=== PATIENT | female | born 1950 | race Caucasian/White ===

== ENCOUNTER 2017-02-13 14:21 | Emergency (ER) | payer OTHER, MEDICARE ==
[~2017-02-13] VITALS: Ht 170.2 cm; Wt 67.6 kg
[~2017-02-13 14:21] MED LIST: AMLO5TAB2 PO; AMLO5TAB4 PO; MECL25TA3 PO
[2017-02-13] MEDS ORDERED: NS IV 1000 ML 1,000 ML ONE (15:13)
[2017-02-13] MEDS ORDERED: ACETAMINOPHEN 500 MG TAB (TYLENOL) ONE (15:13)
[2017-02-13] MEDS ORDERED: NS IV 1000 ML 1,000 ML IV ONE (15:14)
[2017-02-13] MEDS ORDERED: ACETAMINOPHEN 500 MG TAB (TYLENOL) PO PRN (15:15)
[2017-02-13 15:20] LABS: BASOPHILS % (AUTO) 0 % (0-10); EOSINOPHILS % (AUTO) 0 % (0-10); LYMPHOCYTES # (AUTO) 0.8 X 10^3 (1.0-4.0); LYMPHOCYTES % (AUTO) 18 % (12-44); MEAN CORPUSCULAR HEMOGLOBIN 30 PG (25-34); MEAN CORPUSCULAR HGB CONC 34 G/DL (32-36); MEAN CORPUSCULAR VOLUME 88 FL (80-99); MEAN PLATELET VOLUME 9.4 FL (7.4-10.4); MONOCYTES # (AUTO) 0.4 X 10^3 (0.0-1.0); MONOCYTES % (AUTO) 10 % (0-12); NEUTROPHILS # (AUTO) 3.2 X 10^3 (1.8-7.8); NEUTROPHILS % (AUTO) 73 % (42-75); PLATELET COUNT 166 10^3/uL (130-400); RED CELL DISTRIBUTION WIDTH 13.2 % (10.0-14.5); WHITE BLOOD COUNT 4.4 10^3/uL (4.3-11.0)
[2017-02-13 15:21] LABS: BILIRUBIN,URINE 1+ (NEGATIVE); KETONES,URINE 1+ (NEGATIVE); LEUKOCYTE ESTERASE ,URINE 2+ (NEGATIVE); NITRITE,URINE NEGATIVE (NEGATIVE); PH,URINE 6 (5-9); PROTEIN,URINE 3+ (NEGATIVE); UROBILINOGEN,URINE 1 MG/DL (NORMAL)
[2017-02-13 15:26] LABS: PROTHROMBIN TIME PATIENT 12.7 SEC (12.2-14.7)
[2017-02-13 15:36] LABS: ALANINE AMINOTRANSFERASE 23 U/L (0-55); ANION GAP 13 MMOL/L (5-14); ASPARTATE AMINO TRANSFERASE 28 U/L (5-34); BILIRUBIN,TOTAL 0.4 MG/DL (0.1-1.0); BLOOD UREA NITROGEN 12 MG/DL (7-18); BUN/CREATININE RATIO 15; CALCIUM 9.3 MG/DL (8.5-10.1); CARBON DIOXIDE 21 MMOL/L (21-32); CHLORIDE 98 MMOL/L (98-107); CREATININE SERUM 0.78 MG/DL (0.60-1.30); GFR ESTIMATED > 60; GLUCOSE 115 MG/DL (70-105); POTASSIUM 3.3 MMOL/L (3.6-5.0); SODIUM 132 MMOL/L (135-145); TOTAL PROTEIN 7.1 G/DL (6.4-8.2)
[2017-02-13] MEDS ORDERED: DEXAMETHASONE PF 10 MG/ML (DECADRON) VIAL ONE (16:20)
--- NOTE | 2017-02-13 16:27 | ED Cough/URI ---
General Chief Complaint: Fever-Adult/Adol Stated Complaint: DEHYDRATION Nursing Triage Note: PT CO OF FEVER, HAS BEEN SICK W N/V/D SINCE WEDNESDAY, WAS SEEN BY YESTERDAY Source: patient Exam Limitations: no limitations History of Present Illness Time seen by provider: 16:00 Initial Comments Here with report of fever and cough as well as overall not feeling well and thinks she may be dehydrated. She did have nausea, vomiting and diarrhea for the last few days but that has improved. Today mostly it's cough. She was seen by her doctor yesterday and noted that influenza was negative and they believe that this was a viral etiology. She is a long-term smoker. Timing/Duration: getting worse, other Severity/Quality: moderate, productive cough Prior Episodes/Possible Cause: occasional episodes Modifying Factors: Worse With Coughing Associated Symptoms: cough, fever/chills, nasal congestion Allergies and Home Medications Allergies Coded Allergies: No Known Drug Allergies (Unverified , 09/27/11) Home Medications Amlodipine Besylate 5 Mg Tablet, 5 MG PO DAILY, (Reported) Constitutional: see HPI, chills, fever EENTM: nose congestion Respiratory: cough, short of breath, wheezing Cardiovascular: No chest pain Gastrointestinal: see HPI, No abdominal pain, diarrhea Genitourinary: No dysuria Musculoskeletal: no symptoms reported Skin: no symptoms reported All Other Systems Reviewed Negative Unless Noted: Yes Past Zjzwiox-Ixaalx-Vrazkw Hx Patient Social History Alcohol Use: Denies Use Recreational Drug Use: No Smoking Status: Current Everyday Smoker Type Used: Cigarettes Recent Foreign Travel: No Contact w/Someone Who Travel: No Recent Infectious Disease Expo: No Recent Hopitalizations: No Immunizations Up To Date Date of Influenza Vaccine: Aug 22, 2016 Seasonal Allergies Seasonal Allergies: No Surgeries HX Surgeries: No Respiratory Hx Respiratory Disorders: No Cardiovascular Hx Cardiac Disorders: No Neurological Hx Neurological Disorders: No Reproductive System Hx Reproductive Disorders: No Sexually Transmitted Disease: No MASTER COOK History: Menopausal Genitourinary Hx Genitourinary Disorders: No Gastrointestinal Hx Gastrointestinal Disorders: No Musculoskeletal Hx Musculoskeletal Disorders: No Endocrine Hx Endocrine Disorders: No HEENT HX ENT Disorders: No Cancer Hx Cancer: No Psychosocial Hx Psychiatric Problems: No Blood Transfusions Hx Blood Disorders: No Reviewed Nursing Assessment Reviewed/Agree w Nursing PMH: Yes Family Medical History Significant Family History: Hypertension Physical Exam Vital Signs Vital Sign - Last 12Hours 02/13/17 15:12 Temp 101.0 Pulse 83 Resp 33 B/P (MAP) 133/69 Capillary Refill : Less Than 3 Seconds General Appearance: WD/WN, no apparent distress HEENT: PERRL/EOMI, pharynx normal Neck: full range of motion, supple Respiratory: no accessory muscle use, crackles (bilateral bases) Cardiovascular: regular rate, rhythm, no murmur Gastrointestinal: non tender, soft Extremities: non-tender, normal inspection Neurologic/Psychiatric: alert, oriented x 3 Skin: normal color, warm/dry Focused Exam Lactic Acid Level Laboratory Tests Test 02/13/17 15:20 Lactic Acid Level 0.65 MMOL/L (0.50-2.00) Progress/Results/Core Measures Results/Orders Lab Results Laboratory Tests Test 02/13/17 15:05 02/13/17 15:20 Range/Units White Blood Count 4.4 4.3-11.0 10^3/uL Red Blood Count 5.20 4.35-5.85 10^6/uL Hemoglobin 15.6 11.5-16.0 G/DL Hematocrit 46 35-52 % Mean Corpuscular Volume 88 80-99 FL Mean Corpuscular Hemoglobin 30 25-34 PG Mean Corpuscular Hemoglobin Concent 34 32-36 G/DL Red Cell Distribution Width 13.2 10.0-14.5 % Platelet Count 166 130-400 10^3/uL Mean Platelet Volume 9.4 7.4-10.4 FL Neutrophils (%) (Auto) 73 42-75 % Lymphocytes (%) (Auto) 18 12-44 % Monocytes (%) (Auto) 10 0-12 % Eosinophils (%) (Auto) 0 0-10 % Basophils (%) (Auto) 0 0-10 % Neutrophils # (Auto) 3.2 1.8-7.8 X 10^3 Lymphocytes # (Auto) 0.8 L 1.0-4.0 X 10^3 Monocytes # (Auto) 0.4 0.0-1.0 X 10^3 Eosinophils # (Auto) 0.0 0.0-0.3 10^3/uL Basophils # (Auto) 0.0 0.0-0.1 10^3/uL Prothrombin Time 12.7 12.2-14.7 SEC INR Comment 1.0 0.8-1.4 Activated Partial Thromboplast Time 32 24-35 SEC Urine Color YELLOW Urine Clarity SLIGHTLY CLOUDY Urine pH 6 5-9 Urine Specific Culver 1.020 1.016-1.022 Urine Protein 3+ H NEGATIVE Urine Glucose (UA) NEGATIVE NEGATIVE Urine Ketones 1+ H NEGATIVE Urine Nitrite NEGATIVE NEGATIVE Urine Bilirubin 1+ H NEGATIVE Urine Urobilinogen 1 NORMAL MG/DL Urine Leukocyte Esterase 2+ H NEGATIVE Urine RBC (Auto) 5+ H NEGATIVE Urine RBC 5-10 H /HPF Urine WBC 2-5 /HPF Urine Squamous Epithelial Cells 2-5 /HPF Urine Crystals NONE /LPF Urine Bacteria FEW H /HPF Urine Casts NONE /LPF Urine Mucus NEGATIVE /LPF Urine Culture Indicated NO Sodium Level 132 L 135-145 MMOL/L Potassium Level 3.3 L 3.6-5.0 MMOL/L Chloride Level 98 98-107 MMOL/L Carbon Dioxide Level 21 21-32 MMOL/L Anion Gap 13 5-14 MMOL/L Blood Urea Nitrogen 12 7-18 MG/DL Creatinine 0.78 0.60-1.30 MG/DL Estimat Glomerular Filtration Rate > 60 BUN/Creatinine Ratio 15 Glucose Level 115 H 70-105 MG/DL Calcium Level 9.3 8.5-10.1 MG/DL Total Bilirubin 0.4 0.1-1.0 MG/DL Aspartate Amino Transf (AST/SGOT) 28 5-34 U/L Alanine Aminotransferase (ALT/SGPT) 23 0-55 U/L Alkaline Phosphatase 114 40-136 U/L Total Protein 7.1 6.4-8.2 G/DL Albumin 4.0 3.2-4.5 G/DL Lactic Acid Level 0.65 0.50-2.00 MMOL/L My Orders Orders - JACQUELINE MCCANN MD Cbc With Automated Diff (02/13/17 15:14) Comprehensive Metabolic Panel (02/13/17 15:14) Lactic Acid Analyzer (02/13/17 15:14) Blood Culture (02/13/17 15:14) Sputum Culture (02/13/17 15:14) Ua Culture If Indicated (02/13/17 15:14) Protime With Inr (02/13/17 15:14) Partial Thromboplastin Time (02/13/17 15:14) Chest 1 View, Ap/Pa Only (02/13/17 15:14) O2 (02/13/17 15:14) Acetaminophen Tablet (Tylenol Tablet) (02/13/17 15:15) Saline Lock/Iv-Start (02/13/17 15:14) Vital Signs Adult Sepsis Patie Q1HR (02/13/17 15:14) Remove Rings In Anticipation O (02/13/17 15:14) Influenza A And B Antigens (02/13/17 15:14) Ns Iv 1000 Ml (Sodium Chloride 0.9%) (02/13/17 15:14) Acetaminophen Tablet (Tylenol Tablet) (02/13/17 15:13) Ns Iv 1000 Ml (Sodium Chloride 0.9%) (02/13/17 15:13) Dexamethasone Injection (Decadron Inject (02/13/17 16:30) Medications Given in ED Current Medications Medications Dose Ordered Sig/Dara Route Start Time Stop Time Status Last Admin Dose Admin Acetaminophen 1,000 mg ONCE PRN PO 02/13/17 15:15 02/13/17 15:20 DC 02/13/17 15:19 1,000 MG Sodium Chloride 1,000 ml @ 0 mls/hr Q0M ONCE IV 02/13/17 15:14 02/13/17 15:16 DC 02/13/17 15:19 1,000 MLS/HR Vital Signs/I&O Vital Sign - Last 12Hours 02/13/17 15:12 Temp 101.0 Pulse 83 Resp 33 B/P (MAP) 133/69 Blood Pressure Mean: 90 Progress Note : Progress Note Seen and evaluated. IV, labs, UA, chest x-ray, blood cultures and lactic acid ordered. Patient is febrile. Tylenol 1 g by mouth given. Normal saline 1 L bolus. Monitor patient. 1600: Labs look okay. There is a question of right basilar pneumonia. We will initiate antibiotic therapy for this. Due to patient's long smoking history, Decadron 10 mg IV ordered. Discharged home with return precautions. Patient verbalize understanding instructions and agreement with plan. She states she feels better after IV fluids. Diagnostic Imaging Diagonstic Imaging: Xray Plain Films/CT/US/NM/MRI: chest Comments Right basilar pneumonia. Reviewed: Reviewed by Me Departure Impression Impression: Primary Impression: Pneumonia Qualified Codes: J18.1 - Lobar pneumonia, unspecified organism Disposition: HOME, SELF-CARE Condition: Stable Departure-Patient Inst. Decision time for Depature: 16:33 Referrals: ELLEN MILLER DO (PCP/Family) Primary Care Physician Patient Instructions: Community-Acquired Pneumonia, Adult (DC) Add. Discharge Instructions: All discharge instructions reviewed with patient and/or family. Voiced understanding. Take medications as directed. Follow-up with your Dr. in a few days for recheck. Return for worse pain, fever, vomiting, weakness, breathing problems or other concerns as needed. You may take Tylenol 1000 mg every 8 hours as needed for pain. You may take ibuprofen 600 mg every 8 hours as needed for pain. Drink plenty of fluids and try to eat a normal diet. It is okay to start with a light diet including clear liquids and light foods. Advance as tolerated. Scripts Levofloxacin (Levofloxacin) 500 Mg Tablet 500 MG PO DAILY, #7 TAB 0 Refills Prov: JACQUELINE MCCANN MD 02/13/17 Copy Copies To 1: ELLEN MILLER TIMOTHY D MD Feb 13, 2017 16:27
[2017-02-13] MEDS ORDERED: DEXAMETHASONE 4 MG/ML SDV (DECADRON) IV ONE (16:30)
[2017-02-13] MEDS ORDERED: LEVO500T80 PO (16:33)
[2017-02-13 16:45] VITALS: BP 111/56
--- NOTE | 2017-02-13 17:19 | Diagnostic Imaging Report ---
Portable chest. Compared to prior study from 07/09/2016. INDICATION: Feeling ill. FINDINGS: There is a dextroscoliotic curvature of the thoracic spine. There are some chronic interstitial changes present within the lungs. When compared to the prior examination, however, there appear to be some increased interstitial and alveolar opacities at the right lung base and right basilar infiltrates cannot be excluded. There is no significant effusion. There is no pneumothorax. Heart size and mediastinal contours unchanged. IMPRESSION: 1. There are chronic interstitial changes in the lungs but there now appear to be some increased interstitial and alveolar opacities at the right base suggesting right basilar infiltrates. Dictated by: Dictated on workstation # [id number]
--- OUTSIDE RECORDS SUMMARY | 2017-03-21 04:56 | XMS REPORT | Continuity of Care Document ---
Author Author [facility] Organization [facility] Address Unknown Phone Unavailable Allergies Active Description Code Type Severity Reaction Onset Reported/Identified Relationship to Patient Clinical Status Yes No Known Drug Allergies [id number] Drug Allergy Unknown N/ A 09/27/2011 Medications Problems Date Dx Coded Attending Type Code Diagnosis Diagnosed By 07/09/2016 MANDY REZA MD T Ot I10 ESSENTIAL (PRIMARY) HYPERTENSION 07/09/2016 MANDY REZA MD T Ot R42 DIZZINESS AND GIDDINESS 07/09/2016 MANDY REZA MD Ot R53.1 WEAKNESS 07/10/2016 MANDY REZA MD Ot I10 ESSENTIAL (PRIMARY) HYPERTENSION 07/10/2016 MANDY REZA MD T Ot R42 DIZZINESS AND GIDDINESS 07/10/2016 MANDY REZA MD Ot R53.1 WEAKNESS 07/10/2016 JM OSULLIVAN MD Ot F17.210 NICOTINE DEPENDENCE, CIGARETTES, UNCOMPL 07/10/2016 MJ OSULLIVAN MD Ot I10 ESSENTIAL (PRIMARY) HYPERTENSION 07/10/2016 JM OSULLIVAN MD Ot R11.0 NAUSEA 07/10/2016 JM OSULLIVAN MD Ot R42 DIZZINESS AND GIDDINESS 07/14/2016 JM OSULLIVAN MD Ot F17.210 NICOTINE DEPENDENCE, CIGARETTES, UNCOMPL 07/14/2016 JM OSULLIVAN MD Ot I10 ESSENTIAL (PRIMARY) HYPERTENSION 07/14/2016 JM OSULLIVAN MD Ot R11.0 NAUSEA 07/14/2016 JM OSULLIVAN MD Ot R42 DIZZINESS AND GIDDINESS 07/16/2016 MANDY REZA MD T Ot I10 ESSENTIAL (PRIMARY) HYPERTENSION 07/16/2016 MANDY REZA MD T Ot R42 DIZZINESS AND GIDDINESS 07/16/2016 MANDY REZA MD Ot R53.1 WEAKNESS 08/07/2016 EVIE SCHAEFER, KELTON Rossi Ot D12.2 BENIGN NEOPLASM OF ASCENDING COLON 08/07/2016 EVIE SCHAEFER, KELTON Rossi Ot D12.3 BENIGN NEOPLASM OF TRANSVERSE COLON 08/07/2016 EVIE SCHAEFER, KELTON Rossi Ot K63.5 POLYP OF COLON 08/07/2016 EVIE SCHAEFER, KELTON Rossi Ot K64.8 OTHER HEMORRHOIDS 08/07/2016 EVIE SCHAEFER, KELTON Rossi Ot Z12.11 ENCOUNTER FOR SCREENING FOR MALIGNANT NE 08/15/2016 EVIE SCHAEFER, KELTON Rossi Ot D12.2 BENIGN NEOPLASM OF ASCENDING COLON 08/15/2016 EVIE SCHAEFER, KELTON Rossi Ot D12.3 BENIGN NEOPLASM OF TRANSVERSE COLON 08/15/2016 EVIE SCHAEFER, KELTON Rossi Ot K64.8 OTHER HEMORRHOIDS 08/15/2016 EVIE SCHAEFER, KELTON Rossi Ot Z12.11 ENCOUNTER FOR SCREENING FOR MALIGNANT NE 08/17/2016 EVIE SCHAEFER, KELTON Rossi Ot D12.2 BENIGN NEOPLASM OF ASCENDING COLON 08/17/2016 EVIE SCHAEFER, KELTON Rossi Ot D12.3 BENIGN NEOPLASM OF TRANSVERSE COLON 08/17/2016 EVIE SCHAEFER, KELTON Rossi Ot K64.8 OTHER HEMORRHOIDS 08/17/2016 EVIE SCHAEFER, KELTON Rossi Ot Z12.11 ENCOUNTER FOR SCREENING FOR MALIGNANT NE 02/13/2017 JACQUELINE MCCANN MD Ot E86.0 DEHYDRATION 02/13/2017 JACQUELINE MCCANN MD Ot F17.210 NICOTINE DEPENDENCE, CIGARETTES, UNCOMPL 02/13/2017 JACQUELINE MCCANN MD Ot J18.9 PNEUMONIA, UNSPECIFIED ORGANISM 02/15/2017 JACQUELINE CMCANN MD Ot E86.0 DEHYDRATION 02/15/2017 JACQUELINE MCCANN MD Ot F17.210 NICOTINE DEPENDENCE, CIGARETTES, UNCOMPL 02/15/2017 JACQUELINE MCCANN MD, Ot J18.9 PNEUMONIA, UNSPECIFIED ORGANISM Procedures Results Test Result Range Complete blood count (CBC) with automated white blood cell (WBC) differential - 07/09/16 09:44 Blood leukocytes automated count (number/volume) 7.3 10*3/ uL 4.3-11.0 Blood erythrocytes automated count (number/volume) 4.70 10*6 /uL 4.35-5.85 Venous blood hemoglobin measurement (mass/volume) 14.3 g/dL 11.5-16.0 Blood hematocrit (volume fraction) 42 % 35-52 Automated erythrocyte mean corpuscular volume 89 [foz_us] 80-99 Automated erythrocyte mean corpuscular hemoglobin (mass per erythrocyte) 30 pg 25-34 Automated erythrocyte mean corpuscular hemoglobin concentration measurement ( mass/volume) 34 g/dL 32-36 Automated erythrocyte distribution width ratio 12.7 % 10.0-14.5 Automated blood platelet count (count/volume) 221 10*3/uL 130-400 Automated blood platelet mean volume measurement 9.5 [foz_us ] 7.4-10.4 Automated blood neutrophils/100 leukocytes 64 % 42-75 Automated blood lymphocytes/100 leukocytes 29 % 12-44 Blood monocytes/100 leukocytes 5 % 0-12 Automated blood eosinophils/100 leukocytes 2 % 0-10 Automated blood basophils/100 leukocytes 0 % 0-10 Blood neutrophils automated count (number/volume) 4.6 10*3 1.8-7.8 Blood lymphocytes automated count (number/volume) 2.1 10*3 1.0-4.0 Blood monocytes automated count (number/volume) 0.3 10*3 0.0-1.0 Automated eosinophil count 0.2 10*3/uL 0.0-0.3 Automated blood basophil count (count/volume) 0.0 10*3/uL 0.0-0.1 PT panel in platelet poor plasma by coagulation assay - 07/09/16 09:44 Prothrombin time (PT) in platelet poor plasma by coagulation assay 12.4 s 12.2-14.7 INR in platelet poor plasma or blood by coagulation assay 1.0 0.8-1.4 Activated partial thromboplastin time (aPTT) in platelet poor plasma bycoagulation assay - 07/09/16 09:44 Activated partial thromboplastin time (aPTT) in platelet poor plasma bycoagulation assay 28 s 24-35 Comprehensive metabolic panel - 07/09/16 09:44 Serum or plasma sodium measurement (moles/volume) 139 mmol/ L 135-145 Serum or plasma potassium measurement (moles/volume) 3.6 mmol/L 3.6-5.0 Serum or plasma chloride measurement (moles/volume) 105 mmol /L 98-107 Carbon dioxide 24 mmol/L 21-32 Serum or plasma anion gap determination (moles/volume) 10 mmol/L 5-14 Serum or plasma urea nitrogen measurement (mass/volume) 9 mg /dL 7-18 Serum or plasma creatinine measurement (mass/volume) 0.81 mg /dL 0.60-1.30 Serum or plasma urea nitrogen/creatinine mass ratio 11 NRG Serum or plasma creatinine measurement with calculation of estimated glomerular filtration rate > NRG Serum or plasma glucose measurement (mass/volume) 165 mg/dL 70-105 Serum or plasma calcium measurement (mass/volume) 9.4 mg/dL 8.5-10.1 Serum or plasma total bilirubin measurement (mass/volume) 0.5 mg/dL 0.1-1.0 Serum or plasma alkaline phosphatase measurement (enzymatic activity/volume) 118 U/L 40-136 Serum or plasma aspartate aminotransferase measurement (enzymatic activity/ volume) 13 U/L 5-34 Serum or plasma alanine aminotransferase measurement (enzymatic activity/volume ) 14 U/L 0-55 Serum or plasma protein measurement (mass/volume) 6.7 g/dL 6.4-8.2 Serum or plasma albumin measurement (mass/volume) 4.0 g/dL 3.2-4.5 Magnesium - 07/09/16 09:44 Magnesium 2.2 mg/dL 1.8-2.4 Serum or plasma troponin i.cardiac measurement (mass/volume) - 07/09/16 09:44 Serum or plasma troponin i.cardiac measurement (mass/volume) < ng/mL <0.30 Myoglobin, serum - 07/09/16 09:44 Myoglobin, serum 19.0 ng/mL 10.0-92.0 Serum or plasma lithium measurement (moles/volume) - 07/09/16 09:44 BNP level 31.6 pg/mL <100.0 THYROID STIMULATING HORMONE - 07/09/16 09:44 THYROID STIMULATING HORMONE 0.73 u[iU]/mL 0.35-4.94 Complete urinalysis with reflex to culture - 07/09/16 11:15 Urine color determination YELLOW NRG Urine clarity determination CLEAR NRG Urine pH measurement by test strip 6 5- 9 Specific gravity of urine by test strip 1.025 1.016-1.022 Urine protein assay by test strip, semi-quantitative 1+ NEGATIVE Urine glucose detection by automated test strip NEGATIVE NEGATIVE Erythrocytes detection in urine sediment by light microscopy 3+ NEGATIVE Urine ketones detection by automated test strip NEGATIVE NEGATIVE Urine nitrite detection by test strip NEGATIVE NEGATIVE Urine total bilirubin detection by test strip NEGATIVE NEGATIVE Urine urobilinogen measurement by automated test strip (mass/volume) NORMAL NORMAL Urine leukocyte esterase detection by dipstick 2+ NEGATIVE Automated urine sediment erythrocyte count by microscopy (number/high power field) [HPF] NRG Automated urine sediment leukocyte count by microscopy (number/high power field ) [HPF] NRG Bacteria detection in urine sediment by light microscopy FEW NRG Squamous epithelial cells detection in urine sediment by light microscopy 5-10 NRG Crystals detection in urine sediment by light microscopy NONE NRG Casts detection in urine sediment by light microscopy NONE NRG Mucus detection in urine sediment by light microscopy SMALL NRG Complete urinalysis with reflex to culture YES NRG Bacterial urine culture - 07/09/16 11:15 URINE CULTURE RESULTS MORE THAN 3 ISOLATES NRG Complete blood count (CBC) with automated white blood cell (WBC) differential - 02/13/17 15:05 Blood leukocytes automated count (number/volume) 4.4 10*3/ uL 4.3-11.0 Blood erythrocytes automated count (number/volume) 5.20 10*6 /uL 4.35-5.85 Venous blood hemoglobin measurement (mass/volume) 15.6 g/dL 11.5-16.0 Blood hematocrit (volume fraction) 46 % 35-52 Automated erythrocyte mean corpuscular volume 88 [foz_us] 80-99 Automated erythrocyte mean corpuscular hemoglobin (mass per erythrocyte) 30 pg 25-34 Automated erythrocyte mean corpuscular hemoglobin concentration measurement ( mass/volume) 34 g/dL 32-36 Automated erythrocyte distribution width ratio 13.2 % 10.0-14.5 Automated blood platelet count (count/volume) 166 10*3/uL 130-400 Automated blood platelet mean volume measurement 9.4 [foz_us ] 7.4-10.4 Automated blood neutrophils/100 leukocytes 73 % 42-75 Automated blood lymphocytes/100 leukocytes 18 % 12-44 Blood monocytes/100 leukocytes 10 % 0-12 Automated blood eosinophils/100 leukocytes 0 % 0-10 Automated blood basophils/100 leukocytes 0 % 0-10 Blood neutrophils automated count (number/volume) 3.2 10*3 1.8-7.8 Blood lymphocytes automated count (number/volume) 0.8 10*3 1.0-4.0 Blood monocytes automated count (number/volume) 0.4 10*3 0.0-1.0 Automated eosinophil count 0.0 10*3/uL 0.0-0.3 Automated blood basophil count (count/volume) 0.0 10*3/uL 0.0-0.1 Complete urinalysis with reflex to culture - 02/13/17 15:05 Urine color determination YELLOW NRG Urine clarity determination SLIGHTLY CLOUDY NRG Urine pH measurement by test strip 6 5- 9 Specific gravity of urine by test strip 1.020 1.016-1.022 Urine protein assay by test strip, semi-quantitative 3+ NEGATIVE Urine glucose detection by automated test strip NEGATIVE NEGATIVE Erythrocytes detection in urine sediment by light microscopy 5+ NEGATIVE Urine ketones detection by automated test strip 1+ NEGATIVE Urine nitrite detection by test strip NEGATIVE NEGATIVE Urine total bilirubin detection by test strip 1+ NEGATIVE Urine urobilinogen measurement by automated test strip (mass/volume) 1 mg/dL NORMAL Urine leukocyte esterase detection by dipstick 2+ NEGATIVE Automated urine sediment erythrocyte count by microscopy (number/high power field) [HPF] NRG Automated urine sediment leukocyte count by microscopy (number/high power field ) [HPF] NRG Bacteria detection in urine sediment by light microscopy FEW NRG Squamous epithelial cells detection in urine sediment by light microscopy 2-5 NRG Crystals detection in urine sediment by light microscopy NONE NRG Casts detection in urine sediment by light microscopy NONE NRG Mucus detection in urine sediment by light microscopy NEGATIVE NRG Complete urinalysis with reflex to culture NO NRG PT panel in platelet poor plasma by coagulation assay - 02/13/17 15:05 Prothrombin time (PT) in platelet poor plasma by coagulation assay 12.7 s 12.2-14.7 INR in platelet poor plasma or blood by coagulation assay 1.0 0.8-1.4 Activated partial thromboplastin time (aPTT) in platelet poor plasma bycoagulation assay - 02/13/17 15:05 Activated partial thromboplastin time (aPTT) in platelet poor plasma bycoagulation assay 32 s 24-35 Comprehensive metabolic panel - 02/13/17 15:05 Serum or plasma sodium measurement (moles/volume) 132 mmol/ L 135-145 Serum or plasma potassium measurement (moles/volume) 3.3 mmol/L 3.6-5.0 Serum or plasma chloride measurement (moles/volume) 98 mmol/ L 98-107 Carbon dioxide 21 mmol/L 21-32 Serum or plasma anion gap determination (moles/volume) 13 mmol/L 5-14 Serum or plasma urea nitrogen measurement (mass/volume) 12 mg/dL 7-18 Serum or plasma creatinine measurement (mass/volume) 0.78 mg /dL 0.60-1.30 Serum or plasma urea nitrogen/creatinine mass ratio 15 NRG Serum or plasma creatinine measurement with calculation of estimated glomerular filtration rate > NRG Serum or plasma glucose measurement (mass/volume) 115 mg/dL 70-105 Serum or plasma calcium measurement (mass/volume) 9.3 mg/dL 8.5-10.1 Serum or plasma total bilirubin measurement (mass/volume) 0.4 mg/dL 0.1-1.0 Serum or plasma alkaline phosphatase measurement (enzymatic activity/volume) 114 U/L 40-136 Serum or plasma aspartate aminotransferase measurement (enzymatic activity/ volume) 28 U/L 5-34 Serum or plasma alanine aminotransferase measurement (enzymatic activity/volume ) 23 U/L 0-55 Serum or plasma protein measurement (mass/volume) 7.1 g/dL 6.4-8.2 Serum or plasma albumin measurement (mass/volume) 4.0 g/dL 3.2-4.5 Blood lactic acid measurement (moles/volume) - 02/13/17 15:20 Blood lactic acid measurement (moles/volume) 0.65 mmol/L 0.50-2.00 Bacterial blood culture - 02/13/17 15:20 Bacterial blood culture NG NRG Bacterial blood culture - 02/13/17 15:38 Bacterial blood culture NG NRG Encounters ACCT No. Visit Date/Time Discharge Status Pt. Type Provider Facility Loc./Unit Complaint [id number] 02/13/2017 14:23:00 2016 16:47:00 DIS Emergency JACQUELINE MCCANN MD [facility] ER DEHYDRATION [id number] 08/07/2016 07:04:00 2015 09:33:00 DIS Outpatient KELTON CASE MD [facility] SDC SCREENING [id number] 08/05/2016 05:50:00 2015 15:20:00 DIS Outpatient KELTON CASE MD [facility] PREOP SCREENING [id number] 07/10/2016 11:53:00 2015 14:05:00 DIS Emergency SHI SCHAEFER, JM Patel [facility] ER DIZZINESS/NAUSEA WEAKNESS [id number] 07/09/2016 09:35:00 2015 12:38:00 DIS Emergency LIBIA SCHAEFER, MANDY Smith [facility] ER DIZZINESS/ELEV BP [id number] 12/18/2015 08:55:00 ACT Outpatient FILOMENA LEÓN [facility] OCC POSITIVE TB READ
== END 2017-02-13 16:47 | disposition home or self-care (01) ==
LOC: EDUNIT# 14:21 → ER 14:23
DX: J18.9 Pneumonia, unspecified organism (principal); F17.210 Nicotine dependence, cigarettes, uncomplicated
CPT/HCPCS: 36415; 71010; 80053; 81000; 83605; 85025; 85610; 85730; 87040; 96360

== ENCOUNTER → 2018-02-17 | Outpatient (CLI) | payer OTHER, MEDICARE ==
[~2018-02-17] MED LIST changes: +LEVO500T80 PO
--- NOTE | 2018-02-17 14:37 | Diagnostic Imaging Report ---
PROCEDURE: US carotid duplex, bilateral. TECHNIQUE: Multiple real-time grayscale images were obtained over the carotid arteries in various projections, bilaterally. Additional duplex Doppler and color Doppler images were also obtained. INDICATION: Parameters based on the consensus panel Diaz-Scale and Doppler ultrasound criteria published September 2003, Radiology, Volume 229. DOPPLER (peak systolic velocity M/S Right Left CCA .88 1.13 ICA Proximal .87 .83 ICA Mid .76 .89 ICA Distal 1.17 .80 RATIO 1.33 1.26 ECA 1.54 1.28 VERT .75 .59 Indication: Right carotid bruit. Findings: Examination shows mild atherosclerotic disease of the carotid arteries. Maximal stenosis is less than 20%. No significant vessel irregularity is seen. There is antegrade flow in all vessels. Impression: Mild disease. No hemodynamically significant abnormality is seen. Dictated by: Dictated on workstation # [id number]
== END ==
LOC: RAD 14:00
PROVIDERS: ATTEND Nurse Practitioner Family
DX: R09.89 Other specified symptoms and signs involving the circulatory and respiratory systems (principal)
CPT/HCPCS: 93880

== ENCOUNTER → 2018-03-03 | Outpatient (CLI) | payer OTHER, MEDICARE ==
--- NOTE | 2018-03-03 12:29 | Diagnostic Imaging Report ---
STUDY PERFORMED: Dual energy radiographic absorptiometry (DXA) of the lumbar spine and bilateral hips. HISTORY: 67 years-old Female in need of bone mineral density screening. PREVIOUS STUDIES: None. FINDINGS: Examination of transmission images of the lumbar spine and hip demonstrates degenerative changes, with left convex curvature of the lumbar spine. REGION L2-L4 PA total: Bone mineral density g/cm2 0.625 SD from young normal (T) -4.8 SD from age-matched control (Z) -3.1 Right femoral neck: Bone mineral density g/cm2 0.645 SD from young normal (T) -2.8 SD from age-matched control (Z) -1.3 Right hip total: Bone mineral density g/cm2 0.684 SD from young normal (T) -2.6 SD from age-matched control (Z) -1.3 Left femoral neck: Bone mineral density g/cm2 0.647 SD from young normal (T) -2.8 SD from age-matched control (Z) -1.3 Left hip total: Bone mineral density g/cm2 0.603 SD from young normal (T) -3.2 SD from age-matched control (Z) -1.9 A FRAX score was not performed due to osteopenia. IMPRESSION: 1. Osteoporosis. 2. Baseline study. Reductions in bone density to 2.5 or more standard deviations below those of young normal subjects is considered to represent osteoporosis in the absence of other causes of bone loss. Reduction in bone density to 1-2.5 standard deviations below those of young normal subjects fulfills the definition of osteopenia. (WHO Tech Rep Ser 1994; No. 843.6; J Bone Tug Boat Captain Res 1994; 9:1137). Dictated by: Dictated on workstation # [id number]
--- NOTE | 2018-03-03 16:42 | Diagnostic Imaging Report ---
EXAMINATION: CT low-dose lung cancer screening. INDICATION: 30-hshj-pogi smoking history. TECHNIQUE: Routine images of the thorax were obtained using the CT low-dose lung cancer screening protocol. FINDINGS: The previous CT chest exam performed on 09/14/2007 failed to show any sign of an acute cardiopulmonary abnormality. There were bullous changes involving both lung apices, particularly on the right. The plain film exam of 02/13/2017 also noted chronic interstitial disease as well as right basilar infiltrates. On this exam, the emphysematous and bullous changes involving both lung apices seen on the prior study are again evident. There is much greater scar formation involving both lung apices than noted on the prior exam. The emphysematous changes involving both lungs also seem somewhat greater than noted previously. There is no discrete pulmonary nodule identified. There is a band of increased density in the lingula. I suspect that this is secondary to scar formation even though it was not present on the prior exam. This appearance would be atypical for neoplasm, but a six-month follow-up CT chest exam would be recommended for continued evaluation. There is no sign of a pleural effusion. The heart size is within normal limits and similar to the prior exam. There are only sparse coronary artery calcifications evident. The aorta is not abnormally dilated. There is no obvious mediastinal or hilar adenopathy. The thyroid gland is prominent but similar in appearance to the prior study. The gland is not well visualized due to streak artifact. There is no obvious breast mass. According to our records, the patient has not had a mammogram since 2008. If the patient has had a recent (within the last year) mammogram elsewhere, then no further imaging would be necessary. However, if patient has not had a mammogram, then mammography would be recommended for further study. The sections through the upper abdomen failed to show any sign of an acute abnormality. The bone windows are unremarkable for a fracture or for a destructive lesion. As noted on the prior study, there is dextroscoliosis of the thoracic spine. IMPRESSION: 1. There are emphysematous changes involving both lungs and there has been a considerable increase in the apical scarring in both lung apices in the greater than 10-year interval since the prior exam. There is no discrete pulmonary nodule identified, however. 2. The area of increased density in the lingula is more likely due to chronic atelectasis/scar formation than to neoplasm. A 6-month follow-up CT low-dose lung cancer screening chest exam would be recommended for further evaluation. 3. There is no obvious breast mass. Recommendations as above. Lung rads category 3 - Probably benign. Dictated by: Dictated on workstation # [id number]
== END ==
LOC: RAD 08:45
PROVIDERS: ATTEND Nurse Practitioner Family
DX: Z13.820 Encounter for screening for osteoporosis (principal); M81.0 Age-related osteoporosis without current pathological fracture; J43.9 Emphysema, unspecified; Z87.891 Personal history of nicotine dependence
CPT/HCPCS: 77080

== ENCOUNTER → 2018-04-14 | Outpatient (CLI) | payer OTHER, MEDICARE ==
--- NOTE | 2018-04-14 19:27 | Diagnostic Imaging Report ---
EXAMINATION: Ultrasound of the right breast limited. INDICATION: Abnormal mammogram. FINDINGS: The screening mammogram performed on 03/17/2018 at [facility] in [place], [place], noted a 7 mm well-marginated abnormality in the upper-outer quadrant of the right breast. The diagnostic mammogram performed earlier today suggested that this is most likely a benign process. On this exam, there is a well-circumscribed 7 x 5 x 6 mm avascular hypoechoic lesion with through-transmission in the 9 o'clock position of the right breast. I suspect that this does correspond to the density seen on mammogram and this finding is most likely due to a small cyst. The faint microcalcifications seen on the mammogram cannot be visualized on this study. There is no solid mass evident. IMPRESSION: 1. The nodular density seen on mammogram is felt to represent a simple cyst. 2. The suspicious microcalcifications seen on the diagnostic mammogram cannot be identified on this study. Those microcalcifications should be biopsied to exclude malignancy. 3. These results were discussed with Dr. Cata Phoenix. ACR BI-RADS Category 4: Suspicious abnormality. Dictated by: Dictated on workstation # [id number]
--- NOTE | 2018-04-15 22:43 | Diagnostic Imaging Report ---
Unilateral diagnostic right mammogram. INDICATION: Abnormal screening mammogram. The current study was also evaluated with a Computer Aided Detection (CAD) system. FINDINGS: The screening mammogram performed at [facility] on 03/17/2018 noted a 7 mm well-marginated abnormality in the upper-outer quadrant of the right breast. Compression views of this area show that this density has a fairly smooth margin although it is difficult to visualize due to the heterogeneously dense fibroglandular tissue. I would recommend that ultrasound be performed for further study. Also, there is a small group of faint microcalcifications in the upper-outer aspect of the right breast. The compression/magnification view of these calcifications shows that they are technically indeterminate. These calcific densities were not clearly evident on the prior exam performed on 04/02/2009. I would recommend that a stereotactic biopsy be performed to exclude malignancy. IMPRESSION: 1. The nodular density seen on the screening mammogram in the upper-outer aspect of the right breast is most likely a benign process such as a cyst. Ultrasound will be recommended to confirm this. 2. The small group of faint microcalcifications in the upper-outer aspect of the right breast is indeterminate. A stereotactic biopsy will be recommended to exclude malignancy. 3. These results were discussed with Dr. Cata Phoenix. ACR BI-RADS Category 0: Incomplete. (Needs additional imaging evaluation). Result letter will be mailed to the patient. Note: At least 10% of breast cancer is not imaged by mammography. Dictated by: Dictated on workstation # [id number]
== END ==
LOC: RAD 08:32
PROVIDERS: ATTEND Family Medicine
DX: N63.11 Unspecified lump in the right breast, upper outer quadrant (principal); R92.0 Mammographic microcalcification found on diagnostic imaging of breast

== ENCOUNTER → 2018-09-20 | Outpatient (CLI) | payer OTHER, MEDICARE ==
[~2018-09-20] MED LIST changes: -AMLO5TAB2 PO; +AMLO5TAB7 PO
--- NOTE | 2018-09-20 13:54 | Diagnostic Imaging Report ---
EXAM: CT CHEST SCREENING WO INDICATION: 65-igde-dtmd smoking history. LungRads category 3 exam six month followup. COMPARISON: Low-dose chest screening CT 03/03/2018. FINDINGS: Advanced centrilobular emphysematous changes. Biapical scarring. Stable linear consolidation consistent with scarring in the lingula. Groundglass opacity in the posterior left upper lobe inferiorly now measures up to 1.5 cm. There is also a new solid component of this opacity which measures approximately 0.4 cm which was not definitely seen on the prior exam. No new suspicious pulmonary nodule or mass. No mediastinal, hilar or axillary lymphadenopathy is identified. No pleural effusion or pneumothorax. No endobronchial lesions. Normal heart size. No pericardial effusion. Normal caliber thoracic aorta and main pulmonary arteries. Marked rotary scoliosis. No acute osseous findings. The visualized upper abdominal contents are unremarkable. IMPRESSION: 1. Mild interval progression of groundglass opacity in the posterior inferior left upper lobe which now appears to contain a 0.4 cm solid component. Recommend repeat low dose chest CT in 6 months. 2. Advanced centrilobular emphysematous changes. LungRads category: 3. MODIFIER: None. Please note that the low-dose technique of this chest CT is of non-diagnostic quality. This study is only intended for lung cancer screening of high risk patients. Dictated by: Dictated on workstation # [id number]
== END ==
LOC: RAD 11:53
PROVIDERS: ATTEND Family Medicine
DX: Z12.2 Encounter for screening for malignant neoplasm of respiratory organs (principal); J43.2 Centrilobular emphysema; F17.210 Nicotine dependence, cigarettes, uncomplicated

== ENCOUNTER → 2019-03-16 | Outpatient (CLI) | payer OTHER, MEDICARE ==
[~2019-03-16] MED LIST changes: -AMLO5TAB7 PO; +AMLO5TAB9 PO
--- NOTE | 2019-03-16 21:19 | Diagnostic Imaging Report ---
INDICATION: Routine screening. Comparison is made with prior mammogram from 03/17/2018. 2-D and 3-D bilateral screening mammography was performed with CAD. The current study was also evaluated with a Computer Aided Detection (CAD) system. 3-D tomosynthesis was also performed and reviewed. Both breasts are heterogeneously dense, limiting the sensitivity of mammography. Biopsy clip in the outer right breast is again noted. Several circumscribed nodules in the right breast are noted appearing to b e stable. Circumscribed nodule outer left breast is stable. There are benign calcifications present. No new mass or malignant appearing microcalcifications are seen. The axillae are unremarkable. IMPRESSION: No mammographic features suspicious for malignancy are identified. ACR BI-RADS Category 2: Benign findings. Result letter will be mailed to the patient. Note: At least 10% of breast cancer is not imaged by mammography. Dictated by: Dictated on workstation # [id number]
== END ==
LOC: RAD 07:54
PROVIDERS: ATTEND Family Medicine
DX: Z12.31 Encounter for screening mammogram for malignant neoplasm of breast (principal)
CPT/HCPCS: 77067

== ENCOUNTER → 2019-03-20 | Outpatient (CLI) | payer OTHER, MEDICARE ==
[~2019-03-20] MED LIST changes: +HOLD METFORMIN - RECEIVED CONTRAST 20 ML VIAL IV SCH; +IOHEXOL 350 MG/ML 100 ML (OMNIPAQUE 350) VIAL IV ONE; +RT-ALBUTEROL SULF 2.5 MG/3 ML PRE-MIX VIAL INH ONE
[2019-03-20 09:08] LABS: BUN/CREATININE RATIO 17; CREATININE SERUM 0.63 MG/DL (0.60-1.30); GFR ESTIMATED > 60
--- NOTE | 2019-03-20 09:42 | Diagnostic Imaging Report ---
PROCEDURE: CT chest with contrast only. TECHNIQUE: Multiple contiguous axial images were obtained through the chest after administration of intravenous contrast. Auto Exposure Controls were utilized during the CT exam to meet ALARA standards for radiation dose reduction. INDICATION: COPD and lung nodule. Correlation is made with screening CT chest study from 09/20/2018. Low-density nodules left lobe of the thyroid are noted. No axillary lymphadenopathy is seen. No mediastinal or hilar lymphadenopathy is identified. No pericardial or pleural fluid is detected. Biapical pleural-parenchymal scarring is again seen. Centrilobular emphysematous changes are again noted. The somewhat linear density identified in the lingula appears similar to prior exam. The 4 mm solid focus described on prior exam appears less prominent on today's study. The remainder of the lungs are clear. Upper abdomen is unremarkable. IMPRESSION: 1. No evidence of thoracic lymphadenopathy. 2. Lingular linear densities suggestive of scarring or atelectasis. No discrete mass is detected. 3. Small left lobe thyroid nodules. Dictated by: Dictated on workstation # [id number]
== END ==
LOC: RT 08:42
PROVIDERS: ATTEND Nurse Practitioner Family
DX: J44.9 Chronic obstructive pulmonary disease, unspecified (principal); R91.1 Solitary pulmonary nodule; Z72.0 Tobacco use; E04.1 Nontoxic single thyroid nodule
CPT/HCPCS: 36415; 71260; 82565; 84520; 94060; 94726; 94729

== ENCOUNTER 2020-08-07 08:36 | Emergency (ER) | payer OTHER, MEDICARE ==
[~2020-08-07] VITALS: Ht 170.1 cm; Wt 68.0 kg
[~2020-08-07 08:36] MED LIST changes: -HOLD METFORMIN - RECEIVED CONTRAST 20 ML VIAL IV SCH; -IOHEXOL 350 MG/ML 100 ML (OMNIPAQUE 350) VIAL IV ONE; -RT-ALBUTEROL SULF 2.5 MG/3 ML PRE-MIX VIAL INH ONE
--- NOTE | 2020-08-07 08:49 | ED General ---
General Stated Complaint: FALL;HEAD LAC Source of Information: Patient Exam Limitations: No Limitations History of Present Illness Date Seen by Provider: Aug 07, 2020 Time Seen by Provider: 08:46 Initial Comments 70-year-old female presents following a syncope event. Patient is an employee here at [employer]. Reports that she went to the restroom when she stood up to go bit dizzy and lightheaded and thinks maybe she had a brief syncope event. She then went to wash her hands and in her next thing she remembers is waking up on the floor. Patient reports some potato last couple days but no other systemic complaints. She denies any fever, chills, cough, chest pain, nausea, vomiting. Patient gave herself a bloody nose when she fell. Reports she hit the back of her head and has some right shoulder pain. Patient reports a history of hypertension and takes amlodipine but no other systemic complaints. Allergies and Home Medications Allergies Coded Allergies: No Known Drug Allergies (Unverified , 09/27/11) Home Medications Amlodipine Besylate 5 Mg Tablet, 5 MG PO DAILY, (Reported) Levofloxacin 500 Mg Tablet, 500 MG PO DAILY Prescribed by: JACQUELINE MCCANN on 02/13/17 4437 Patient Home Medication List Home Medication List Reviewed: Yes Review of Systems Review of Systems Constitutional: No chills, No fever; malaise EENTM: see HPI Respiratory: No cough, No short of breath Cardiovascular: No chest pain, No palpitations Gastrointestinal: No abdominal pain, No nausea, No vomiting Genitourinary: no symptoms reported Musculoskeletal: no symptoms reported Skin: see HPI Psychiatric/Neurological: See HPI Hematologic/Lymphatic: No Symptoms Reported Immunological/Allergic: no symptoms reported Past Sgckbvr-Vkabge-Rokjwg Hx Past Med/Social Hx: Reviewed Nursing Past Med/Soc Hx Patient Social History Type Used: Cigarettes Recent Hopitalizations: No Immunizations Up To Date Date of Influenza Vaccine: Aug 22, 2016 Seasonal Allergies Seasonal Allergies: No Past Medical History Reproductive Disorders: 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 0.0oz. [id number]; 23.3 BMI Method:Stated General Appearance: No Apparent Distress, WD/WN HEENT: PERRL/EOMI, Other (mild blood in her left nare) Neck: Non Tender Respiratory: Lungs Clear, Normal Breath Sounds Cardiovascular: Regular Rate, Rhythm, No Edema Gastrointestinal: Non Tender, Soft Back: No Vertebral Tenderness Extremity: Normal Capillary Refill, Normal Inspection, Normal Range of Motion Neurologic/Psychiatric: Oriented x3, No Motor/Sensory Deficits, Normal Mood/Affect, rap artist II-XII Norm as Tested Skin: Normal Color, Warm/Dry Progress/Results/Core Measures Suspected Sepsis SIRS Temperature: Pulse: Respiratory Rate: Laboratory Tests 08/07/20 08:47: White Blood Count 5.3 Blood Pressure / Mean: Laboratory Tests 08/07/20 08:47: Creatinine 1.06, Platelet Count 226, Total Bilirubin 0.4 Results/Orders Lab Results Laboratory Tests Test 08/07/20 08:47 08/07/20 09:05 08/07/20 10:32 Range/Units White Blood Count 5.3 4.3-11.0 10^3/uL Red Blood Count 4.82 3.80-5.11 10^6/uL Hemoglobin 14.3 11.5-16.0 g/dL Hematocrit 44 35-52 % Mean Corpuscular Volume 90 80-99 fL Mean Corpuscular Hemoglobin 30 25-34 pg Mean Corpuscular Hemoglobin Concent 33 32-36 g/dL Red Cell Distribution Width 13.1 10.0-14.5 % Platelet Count 226 130-400 10^3/uL Mean Platelet Volume 9.4 9.0-12.2 fL Immature Granulocyte % (Auto) 0 % Neutrophils (%) (Auto) 56 42-75 % Lymphocytes (%) (Auto) 31 12-44 % Monocytes (%) (Auto) 12 0-12 % Eosinophils (%) (Auto) 0 0-10 % Basophils (%) (Auto) 0 0-10 % Neutrophils # (Auto) 2.9 1.8-7.8 10^3/uL Lymphocytes # (Auto) 1.7 1.0-4.0 10^3/uL Monocytes # (Auto) 0.6 0.0-1.0 10^3/uL Eosinophils # (Auto) 0.0 0.0-0.3 10^3/uL Basophils # (Auto) 0.0 0.0-0.1 10^3/uL Immature Granulocyte # (Auto) 0.0 0.0-0.1 10^3/uL D-Dimer 1.26 H 0.00-0.49 UG/ML Sodium Level 135 135-145 MMOL/L Potassium Level 3.3 L 3.6-5.0 MMOL/L Chloride Level 99 98-107 MMOL/L Carbon Dioxide Level 24 21-32 MMOL/L Anion Gap 12 5-14 MMOL/L Blood Urea Nitrogen 16 7-18 MG/DL Creatinine 1.06 0.60-1.30 MG/DL Estimat Glomerular Filtration Rate 51 BUN/Creatinine Ratio 15 Glucose Level 164 H 70-105 MG/DL Calcium Level 9.4 8.5-10.1 MG/DL Corrected Calcium 9.4 8.5-10.1 MG/DL Magnesium Level 1.8 1.6-2.4 MG/DL Total Bilirubin 0.4 0.1-1.0 MG/DL Aspartate Amino Transf (AST/SGOT) 20 5-34 U/L Alanine Aminotransferase (ALT/SGPT) 20 0-55 U/L Alkaline Phosphatase 114 40-136 U/L Troponin I < 0.028 <0.028 NG/ML C-Reactive Protein High Sensitivity 0.25 0.00-0.50 MG/DL Total Protein 7.0 6.4-8.2 GM/DL Albumin 4.0 3.2-4.5 GM/DL Procalcitonin 0.05 <0.10 NG/ML Glucometer 160 H 70-110 MG/DL My Orders Orders - ANGELICA BEAUCHAMP DO Ct Head Wo (08/07/20 08:50) Chest 1 View, Ap/Pa Only (08/07/20 08:50) Shoulder, Right, 3 Views (08/07/20 08:50) Cbc With Automated Diff (08/07/20 08:50) Comprehensive Metabolic Panel (08/07/20 08:50) Hs C Reactive Protein (08/07/20 08:50) Magnesium (08/07/20 08:50) Troponin I (08/07/20 08:50) Ua Culture If Indicated (08/07/20 08:50) Accucheck Stat ONCE (08/07/20 08:50) Ed Iv/Invasive Line Start (08/07/20 08:50) Ekg Tracing (08/07/20 08:50) Monitor-Rhythm Ecg Trace Only (08/07/20 08:50) Ed Iv/Invasive Line Start (08/07/20 08:50) Ns Iv 1000 Ml (Sodium Chloride 0.9%) (08/07/20 08:50) Orthostatic Vital Signs (Adult (08/07/20 08:50) Fibrin Degradation Products (08/07/20 08:50) Procalcitonin (Pct) (08/07/20 08:50) Vital Signs/I&O 08/07/20 08/07/20 08/07/20 08/07/20 08:39 08:39 09:12 09:27 Temp 36.6 Pulse 56 51 54 56 62 Resp 18 18 B/P (MAP) 91/57 (68) 90/52 (65) 100/54 (69) 95/54 (68) 83/51 (62) Pulse Ox 89 9 O2 Delivery Room Air Nasal Cannula Nasal Cannula O2 Flow Rate 2.00 2.00 08/07/20 10:24 Pulse 52 Resp 18 B/P (MAP) 124/54 (77) Pulse Ox 97 O2 Delivery Nasal Cannula O2 Flow Rate 2.00 Capillary Refill : Progress Note : Time: 10:44 Progress Note Patient symptoms improved with some IV fluids. Patient's labs shows a slight low potassium, as have an elevation of her d-dimer however she is not tachycardic, does not have chest pain, does not shortness of breath and does not have sy mptoms consistent with a pulmonary embolism. Patient likely a vasovagal syncope with some mild dehydration. I did recommend she follows up with her primary care provider for continuation of care and recheck of her symptoms. She also has a slight concussion. Patient is stable and is ready be discharged home. Recommend she is off work for the rest today and return as tolerated. ECG Initial ECG Impression Date: Aug 07, 2020 Initial ECG Rate: 53 Initial ECG Intervals: Normal Initial ECG Impression: Nonspecific Changes, Sinus Bradycardia Comment sinus bradycardia, non specific changes, Departure Impression Primary Impression: Syncope Qualified Codes: R55 - Syncope and collapse Additional Impressions: Head injury Qualified Codes: S09.90XA - Unspecified injury of head, initial encounter Concussion Qualified Codes: S06.0X1A - Concussion with loss of consciousness of 30 mi nutes or less, initial encounter Disposition: 01 HOME, SELF-CARE Condition: Stable Departure-Patient Inst. Referrals: ELLEN MILLER DO (PCP/Family) Primary Care Physician Patient Instructions: Concussion in Adults, Syncope (Fainting) (DC), Orthostatic Hypotension (DC), Vasovagal Response Add. Discharge Instructions: Follow-up with your primary care provider in 2-3 days for continuation of care and recheck in today symptoms Work/School Note: Work Release Form Date Seen in the Emergency Department: Aug 07, 2020 Return to Work: Aug 08, 2020 Copy Copies To 1: ELLEN MILLER TREVOR L DO Aug 07, 2020 08:49
[2020-08-07] MEDS ORDERED: NS IV 1000 ML 1,000 ML IV SCH (08:50)
[2020-08-07 08:58] LABS: BASOPHILS % (AUTO) 0 % (0-10); EOSINOPHILS % (AUTO) 0 % (0-10); HEMATOCRIT 44 % (35-52); HEMOGLOBIN 14.3 g/dL (11.5-16.0); LYMPHOCYTES # (AUTO) 1.7 10^3/uL (1.0-4.0); LYMPHOCYTES % (AUTO) 31 % (12-44); MEAN CORPUSCULAR HEMOGLOBIN 30 pg (25-34); MEAN CORPUSCULAR HGB CONC 33 g/dL (32-36); MEAN CORPUSCULAR VOLUME 90 fL (80-99); MEAN PLATELET VOLUME 9.4 fL (9.0-12.2); MONOCYTES # (AUTO) 0.6 10^3/uL (0.0-1.0); MONOCYTES % (AUTO) 12 % (0-12); NEUTROPHILS # (AUTO) 2.9 10^3/uL (1.8-7.8); NEUTROPHILS % (AUTO) 56 % (42-75); PLATELET COUNT 226 10^3/uL (130-400); WHITE BLOOD COUNT 5.3 10^3/uL (4.3-11.0)
[2020-08-07 09:12] VITALS: BP_SYST 83; BP_SYST 90; BP_SYST 95; BP_DIAS 51; BP_DIAS 52; BP_DIAS 54
[2020-08-07 09:27] VITALS: BP 100/54
--- NOTE | 2020-08-07 09:29 | NUR ---
TO CT PER CART.
[2020-08-07 09:30] LABS: CHLORIDE 99 MMOL/L (98-107); POTASSIUM 3.3 MMOL/L (3.6-5.0); SODIUM 135 MMOL/L (135-145)
[2020-08-07 09:31] LABS: CALCIUM 9.4 MG/DL (8.5-10.1)
[2020-08-07 09:32] LABS: GLUCOSE 164 MG/DL (70-105)
[2020-08-07 09:33] LABS: CARBON DIOXIDE 24 MMOL/L (21-32)
[2020-08-07 09:34] LABS: BILIRUBIN,TOTAL 0.4 MG/DL (0.1-1.0)
[2020-08-07 09:36] LABS: ALKALINE PHOSPHATASE 114 U/L (40-136); CREATININE SERUM 1.06 MG/DL (0.60-1.30); GFR ESTIMATED 51
[2020-08-07 09:37] LABS: BUN/CREATININE RATIO 15
[2020-08-07 09:38] LABS: MAGNESIUM 1.8 MG/DL (1.6-2.4)
[2020-08-07 09:39] LABS: ALANINE AMINOTRANSFERASE 20 U/L (0-55)
--- NOTE | 2020-08-07 09:53 | Diagnostic Imaging Report ---
INDICATION: Syncope and trauma to head. TECHNIQUE: Multiple contiguous axial images were obtained through the brain without the use of intravenous contrast. Auto Exposure Controls were utilized during the CT exam to meet ALARA standards for radiation dose reduction. Comparison made with 07/10/2016 There were no extra-axial fluid collections. No intracranial hemorrhage. No intracranial mass or mass effect. No midline shift. The ventricles are normal in size and position. There are minimal chronic changes in deep white matter. Calvarial windows show no fracture. There is mild posterior scalp swelling with scalp laceration with mild soft tissue gas in the posterior scalp. IMPRESSION: No acute intracranial hemorrhage or acute intracranial finding. No calvarial fracture. Mild soft tissue swelling the posterior scalp with some gas in the scalp soft tissues compatible with laceration. Dictated by: Dictated on workstation # [id number]
--- NOTE | 2020-08-07 10:07 | Diagnostic Imaging Report ---
INDICATION: Fall with right shoulder pain AP, oblique, and transscapular views of the right shoulder are obtained and compared to 10/05/2011. No fracture or acute bony abnormality seen. There is moderate degenerative change of the glenohumeral joint and AC joint. IMPRESSION: Degenerative findings. No acute fracture or dislocation of right shoulder. Dictated by: Dictated on workstation # [id number]
[2020-08-07 10:24] VITALS: BP 124/54
--- NOTE | 2020-08-07 10:24 | Diagnostic Imaging Report ---
EXAMINATION: AP chest at 9:30 AM. INDICATION: Syncope. FINDINGS: The heart size is within normal limits and stable when compared to 07/09/2016. The lungs are clear. There is no sign of failure, pneumonia, or pleural effusion. The mediastinum is not widened. The osseous structures are intact. The dextroscoliosis of the thoracic spine seen previously is again evident and no different. IMPRESSION: There is no evidence for active disease. Dictated by: Dictated on workstation # [id number]
[2020-08-07 10:32] VITALS: BP 118/53
--- NOTE | 2020-08-07 10:39 | NUR ---
Met pt's son, Rigoberto (also goes by middle name, Salvador) at the ER entrance. Provided communication between ER staff and son about ETA for discharge so the son could plan his work day and make himself available to provide transportation for the pt upon d/c from the ER. 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 She described feeling fatigued for the past few days. She said she worked today and still felt fatigued. The patient recounted that while in the restroom at work, she fainted, hit her head, and upon becoming conscious realized her nose was bleeding. The pt demonstrates positive coping at this time. This leadership development consultant also provided emotional support and prayer with the pt.
[2020-08-07 10:44] LABS: BILIRUBIN,URINE NEGATIVE (NEGATIVE); COLOR,URINE YELLOW; GLUCOSE, URINE (UA) NEGATIVE (NEGATIVE); KETONES,URINE NEGATIVE (NEGATIVE); LEUKOCYTE ESTERASE ,URINE NEGATIVE (NEGATIVE); NITRITE,URINE NEGATIVE (NEGATIVE); PROTEIN,URINE 2+ (NEGATIVE)
[2020-08-07 10:56] LABS: BACTERIA,URINE FEW /HPF; CLARITY,URINE SL CLOUDY; WBC,URINE 0-2 /HPF
[2020-08-07 10:57] LABS: AMORPHOUS SEDIMENT,UR FEW AMOR URATES /LPF; HYALINE CASTS, URINE 25-50 /LPF
--- NOTE | 2020-08-07 11:09 | NUR ---
WAITING FOR SON TO COME FROM [place] TO GET HER
== END 2020-08-07 10:50 | disposition home or self-care (01) ==
LOC: EDUNIT# 08:36 → ER 08:37
DX: S06.0X1A Concussion with loss of consciousness of 30 minutes or less, initial encounter (principal); R55 Syncope and collapse; I10 Essential (primary) hypertension; W18.39XA Other fall on same level, initial encounter; Y92.59 Other trade areas as the place of occurrence of the external cause
CPT/HCPCS: 36415; 70450; 71045; 73030; 80053; 81000; 82962; 83735; 84145; 84484; 85025; 85379; 86141; 93005; 93041

== ENCOUNTER → 2020-08-12 | Outpatient (CLI) | payer OTHER, MEDICARE ==
--- NOTE | 2020-08-12 11:16 | Diagnostic Imaging Report ---
INDICATION: Hypoxia and syncope. Time of exam: 10:24 AM Correlation is made with prior chest from 08/07/2020. Heart size is normal. The lungs are clear. No infiltrates are seen. There is no effusion or pneumothorax. Right convexity thoracic scoliotic curvature is again noted. IMPRESSION: No acute cardiopulmonary process is detected. Dictated by: Dictated on workstation # [id number]
== END ==
LOC: RAD 10:01
PROVIDERS: ATTEND Family Medicine
DX: R09.02 Hypoxemia (principal); R53.83 Other fatigue
CPT/HCPCS: 71046

== ENCOUNTER → 2020-08-21 | Outpatient (CLI) | payer OTHER, MEDICARE ==
--- NOTE | 2020-08-21 09:41 | Diagnostic Imaging Report ---
EXAMINATION: CT Lung Screening. INDICATION: Screening for lung cancer, 33 pack year history of smoking, current smoker. TECHNIQUE: Noncontrast, low-dose CT imaging performed according to the lung cancer screening protocol. Auto Exposure Controls were utilize during the CT exam to meet ALARA standards for radiation dose reduction. COMPARISON: 03/20/2019, 09/20/2018, and 03/03/2018. FINDINGS: No significant adenopathy within the chest. Scattered vascular calcifications without aneurysmal dilatation of the thoracic aorta. The heart is within normal limits in size. No significant pericardial effusion. No pleural effusion. No pneumothorax. Biapical pleural parenchymal scarring. Centrilobular emphysematous changes are again noted bilaterally, greatest within the upper lobes. The 2 mm subpleural left upper lobe pulmonary nodule is stable since 2018. An irregular pulmonary nodule just under 6 mm is identified within the lingula, pleural-based. This is seen on series 2, image 192. New mild reticular opacities are also noted within the posterior aspect of the left lower lobe with associated new 5 mm left lower lobe pulmonary nodule. 7 mm nodular density within the right upper lobe is unchanged since February 2018 and therefore benign. The trachea is patent. 3 cm mass with convex margins within the anterior aspect of the left hepatic lobe is again identified and not significantly changed since February 2018. This is shown to be a cyst on prior imaging from July 2007. The visualized upper abdomen is otherwise unremarkable. Significant apex right curvature of the spine. No acute osseous abnormality with scattered osseous degenerative changes. IMPRESSION: New lingular and left lower lobe solid appearing pulmonary nodules measuring just under 6 mm are indeterminate. These are favored to relate to minimal atelectasis and/or scar; however, followup is recommended as they are considered probably benign given size. A low dose CT of the chest is recommended in 6 months to reevaluate. Stable 7 mm right upper lobe pulmonary nodule which is benign. Moderate background emphysematous changes. LUNG-RADS CATEGORY: 3: Probably benign. MODIFIER: S: Moderate background emphysematous changes. FOLLOWUP: Low-dose CT of the chest is recommended in 6 months. Dictated by: Dictated on workstation # [id number]
== END ==
LOC: RAD 07:45
PROVIDERS: ATTEND Family Medicine
DX: Z12.2 Encounter for screening for malignant neoplasm of respiratory organs (principal); F17.210 Nicotine dependence, cigarettes, uncomplicated; R91.8 Other nonspecific abnormal finding of lung field; J43.9 Emphysema, unspecified

== ENCOUNTER → 2021-02-27 | Outpatient (CLI) | payer OTHER, MEDICARE ==
[~2021-02-27] MED LIST changes: +AMLO-250 PO; -AMLO5TAB9 PO
--- NOTE | 2021-02-27 11:24 | Diagnostic Imaging Report ---
EXAMINATION: CT Lung Screening. INDICATION: 33 pack year smoking history with followup of small left lung nodule seen at comparison study. TECHNIQUE: Noncontrast, low-dose CT imaging performed according to the lung cancer screening protocol. Auto Exposure Controls were utilize during the CT exam to meet ALARA standards for radiation dose reduction. COMPARISON: 08/21/2020. FINDINGS: On the previous exam, there was a near 6 mm juxtapleural nodule in the far inferior aspect of the lingular segment of the left upper lobe. That nodularity has resolved. The previous 5 mm left lower lobe juxtapleural nodule adjacent to the lower T-spine has also resolved. Some areas of subpleural scarring and extensive curvilinear biapical pleural-parenchymal scarring as well as heterogeneous air trapping and apical cyst formation are identical to multiple prior exams. A few tiny 2 to 4 mm subpleural nodular foci bilaterally are unchanged from multiple previous exams. There is no new or suspicious mass. No adenopathy, effusion, or pneumothorax. No acute chest wall pathology. In the partially visualized upper abdomen, there is a lateral sector left hepatic lobe nodule which can be seen dating back to 2006 where it was shown to be a simple cyst. IMPRESSION: The newly developed subpleural subcentimeter nodules in the left lung alerted to on previous exam have since resolved confirming their benignity. Other findings are all stable and chronic with no findings suggestive of lung cancer. LUNG-RADS CATEGORY:Category 2 MODIFIER:None OTHER SIGNIFICANT FINDINGS:None Dictated by: Dictated on workstation # [id number]
== END ==
LOC: RAD 09:26
PROVIDERS: ATTEND Family Medicine
DX: Z12.2 Encounter for screening for malignant neoplasm of respiratory organs (principal); R91.8 Other nonspecific abnormal finding of lung field; F17.210 Nicotine dependence, cigarettes, uncomplicated
CPT/HCPCS: 71271